=== PATIENT | male | born 1945 | race Two or more races ===

== ENCOUNTER → 2016-07-20 | Outpatient (CLI) | payer MEDICARE, MEDICAID ==
[~2016-07-20] MED LIST: ASPIRIN EC81 MG ORAL; CITALOPRAM HBR40 M1 ORAL; FLUTICASONE PRO60 ML TOPIC; GLUCOSAMINE H1500 MG PO; KLONOPIN1 MG ORAL; LOSARTAN POTASS50 MG ORAL; LOTRISONE CREAM15 GM TP; METOPROLOL TART25 MG ORAL; MULTIVITAMINS1 EA14 PO; OMEPRAZOLE20 M2 ORAL; PROCTOSOL HC; SIMVASTATIN40 MG ORAL; TERAZOSIN HCL1 MG ORAL; VITAMIN B125000 MCG PO
[2016-07-20 13:26] VITALS: BP 125/74
--- NOTE | 2016-07-20 14:05 | GI Progress Note ---
Assessment/Plan Problems: (1) Small intestinal bacterial overgrowth ICD Codes: K63.89 - Other specified diseases of intestine SNOMED: 460703371 (2) Abdominal bloating ICD Codes: R14.0 - Abdominal distension (gaseous) SNOMED: 277030362 Status: stable Status Narrative Seen with Dr. Travis. Assessment/Plan s/p Xifaxan tx >> repeat Xifaxan + Erythromycin RTC x [address] if no improvement Subjective Subjective s/p xifaxin, still has abdominal bloating Objective Last 24 Hour Vital Signs Date Time Temp Pulse Resp B/P Pulse Ox O2 Delivery O2 Flow Rate FiO2 07/20/16 13:26 98.3 70 16 125/74 General Appearance: no apparent distress, alert Cardiovascular: normal rate, regular rhythm Respiratory/Chest: normal breath sounds, no respiratory distress, no accessory muscle use Abdominal Exam: normal bowel sounds, non tender, soft Genitourinary/Rectal: normal rectal exam Extremities: normal range of motion Maame Thurston N.P. Jul 20, 2016 14:05
== END | disposition home or self-care (01) ==
LOC: PAN 12:56
DX: A04.8 Other specified bacterial intestinal infections (principal); R14.0 Abdominal distension (gaseous)
CPT/HCPCS: 99211